=== PATIENT | male | born 1985 | race African-American/Black ===

== ENCOUNTER 2017-01-09 20:53 | Emergency (ER) | payer BC ==
--- NOTE | 2017-01-09 21:48 | RADIOLOGY REPORT (SQ) ---
EXAM DESCRIPTION: HAND RIGHT 3 VIEWS COMPLETED DATE/TIME: 01/09/2017 9:32 pm REASON FOR STUDY: injury COMPARISON: None. EXAM PARAMETERS: NUMBER OF VIEWS: Three views. TECHNIQUE: AP, lateral and oblique radiographic images acquired of the right hand. LIMITATIONS: None. FINDINGS: MINERALIZATION: Normal. BONES: No acute fracture or dislocation. No worrisome bone lesions. JOINTS: No effusions. SOFT TISSUES: No soft tissue swelling. No foreign body. OTHER: No other significant finding. IMPRESSION: NEGATIVE STUDY OF THE RIGHT HAND. NO RADIOGRAPHIC EVIDENCE OF ACUTE INJURY. TECHNICAL DOCUMENTATION: JOB ID: [id number] [employer]- All Rights Reserved
[2017-01-09] MEDS ORDERED: ACETAMINOPHEN 325 MG TABLET PO ONE (23:37)
[2017-01-09] MEDS ORDERED: IBUPROFEN 600 MG TABLET PO ONE (23:37)
--- NOTE | 2017-01-09 23:38 | ER Document Report ---
ED General - General Chief Complaint: Thumb Injury Stated Complaint: RIGHT THUMB PAIN Time Seen by Provider: 01/09/17 23:10 Notes: Patient is a 31-year-old male who presents with a severe, constant throbbing pain to his right thumb and thenar eminence after slamming into a car door just prior to arrival. States that he has applied ice to it with moderate improvement of the pain. Touching the area worsens the pain. He is right-hand dominant. No history of similar injury in the past. He has not seen a primary care doctor regarding today's concerns. He denies any additional injuries. TRAVEL OUTSIDE OF THE [place] IN LAST 30 DAYS: No Past Medical History - General Information source: Patient - Social History Smoking Status: Current Every Day Smoker Frequency of alcohol use: None Drug Abuse: None Lives with: Spouse/Significant other Family History: Reviewed & Not Pertinent Patient has suicidal ideation: No Patient has homicidal ideation: No Renal/ Medical History: Denies: Hx Peritoneal Dialysis Review of Systems - Review of Systems Notes: Constitutional: Negative for fever. Eyes: Negative for visual changes. ENT: Negative for facial injury Cardiovascular: Negative for chest injury. Respiratory: Negative for shortness of breath. Gastrointestinal: Negative for abdominal injury. Genitourinary: Negative for genital injury Musculoskeletal: Positive for right hand injury Skin: Negative for laceration/abrasions. Neurological: Negative for head injury. Physical Exam - Vital signs Vitals: Pulse Resp BP Pulse Ox 74 20 141/95 H 98 01/10/17 00:21 01/10/17 00:21 01/10/17 00:21 01/10/17 00:21 Interpretation: Normal Notes: PHYSICAL EXAMINATION: GENERAL: Well-appearing, well-nourished and in no acute distress. HEAD: Atraumatic, normocephalic. EYES: sclera anicteric, conjunctiva are normal. ENT: Moist mucous membranes. NECK: Normal range of motion LUNGS: Normal work of breathing HEART: 2+ radial pulses bilaterally EXTREMITIES: Mild swelling and significant pain on palpation of the right thenar eminence. Full flexion and extension of the PIP and MCP of the right thumb. No obvious deformity. No anatomic snuffbox tenderness. NEUROLOGICAL: No focal neurological deficits. Moves all extremities spontaneously and on command. PSYCH: Normal mood, normal affect. SKIN: Warm, Dry, normal turgor, no rashes or lesions noted. Course - Re-evaluation Re-evalutation: 01/09/17 23:36 Patient presents with significant swelling to the right thumb and thenar eminence after slamming it in a car door. No evidence of acute fracture on x- ray. Management with ibuprofen, compression, ice has been recommended. Capillary refill is less than 2 seconds in the thumb. No limited range of motion at the MCP or PIP. At this time will discharge with return precautions and follow-up recommendations. Verbal discharge instructions given a the bedside and opportunity for questions given. Medication warnings reviewed. Patient is in agreement with this plan and has verbalized understanding of return precautions and the need for primary care follow-up in the next 24-72 hours. - Vital Signs Vital signs: Temp Pulse Resp BP Pulse Ox 74 20 141/95 H 98 01/10/17 00:21 01/10/17 00:21 01/10/17 00:21 01/10/17 00:21 - Diagnostic Test Radiology reviewed: Image reviewed, Reports reviewed Radiology results interpreted by me: 01/10/17 03:55 Right hand x-ray: No acute fracture dislocation Discharge - Discharge Clinical Impression: Injury of right thumb Qualifiers: Encounter type: initial encounter Qualified Code(s): S69.91XA - Unspecified injury of right wrist, hand and finger(s), initial encounter Condition: Good Disposition: HOME, SELF-CARE Additional Instructions: Your x-ray does not show any acute fracture today. You likely have a soft tissue injury. For your pain: Take ibuprofen 600 mg and acetaminophen 1000 mg every 6 hours together as needed for pain. Continue to apply ice to the area is much your able. Please follow-up with your primary care physician if you do not have improving your symptoms in the next 1-2 weeks. Please return immediately if you develop weakness, numbness, spreading redness from the area, or any other symptoms that are concerning to you. Forms: Return to Work
[2017-01-10 00:22] VITALS: BP 141/95
== END 2017-01-10 00:21 | disposition home or self-care (01) ==
LOC: ER 20:53
DX: S69.91XA Unspecified injury of right wrist, hand and finger(s), initial encounter (principal); F17.200 Nicotine dependence, unspecified, uncomplicated; X58.XXXA Exposure to other specified factors, initial encounter
CPT/HCPCS: 99283